=== PATIENT | female | born 1990 | race Caucasian/White ===

== ENCOUNTER 2017-05-14 15:59 | Emergency (ER) | payer MEDICAID ==
[~2017-05-14] VITALS: Ht 165.1 cm; Wt 77.1 kg
[2017-05-14 16:04] VITALS: BP_SYST 132
[2017-05-14] MEDS ORDERED: AMOXICILLIN/CLAVULANATE POTASSIUM 875 MG TABLET PO ONE (17:00)
[2017-05-14] MEDS ORDERED: IBUPROFEN 800 MG TABLET PO ONE (17:00)
[2017-05-14 17:15] VITALS: BP_SYST 124
== END 2017-05-14 17:15 | disposition home or self-care (01) ==
LOC: SED 15:59
DX: J02.9 Acute pharyngitis, unspecified (principal); R51 Headache
CPT/HCPCS: 99283

== ENCOUNTER 2019-07-24 18:49 | Emergency (ER) | payer MEDICAID ==
[~2019-07-24] VITALS: Ht 165.1 cm; Wt 79.4 kg
[2019-07-24 19:25] VITALS: BP_SYST 119
--- NOTE | 2019-07-24 19:35 | NUR ---
Patient to ER bed 3 to gown for evaluation. Side rails up.
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
--- NOTE | 2019-07-24 19:58 | NUR ---
denies n/v at this time
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
--- NOTE | 2019-07-24 20:20 | NUR ---
ER at bedside examining patient.
[2019-07-24 20:30] VITALS: BP_SYST 119
--- NOTE | 2019-07-24 20:30 | NUR ---
Patient given written and verbal discharge instructions and verbalizes understanding. ER MD discussed with patient the results and treatment provided. Patient in stable condition. ID arm band removed. Rx of motrin given. Patient educated on pain management and to follow up with PMD. Pain Scale 0/10. Opportunity for questions provided and answered. Medication side effect fact sheet provided.
== END 2019-07-24 20:30 | disposition home or self-care (01) ==
LOC: SED 18:49
DX: S49.91XA Unspecified injury of right shoulder and upper arm, initial encounter (principal); V49.40XA Driver injured in collision with unspecified motor vehicles in traffic accident, initial encounter; Y93.89 Activity, other specified; Y92.89 Other specified places as the place of occurrence of the external cause; Y99.8 Other external cause status
CPT/HCPCS: 73030; 81025; 99283

== ENCOUNTER 2023-08-01 12:56 | Emergency (ER) | payer MEDICAID ==
[~2023-08-01] VITALS: Ht 170.2 cm; Wt 90.7 kg
[2023-08-01 13:08] VITALS: BP_SYST 145; PULSE 70; RESP 20; TEMP 97; O2SAT 99
[2023-08-01] MEDS ORDERED: KETOROLAC TROMETHAMINE 60 MG/2 ML VIAL IM ONE (14:30)
[2023-08-01 15:38] LABS: BASOPHILS % (AUTO) 0.5 % (0.0-2.0); EOSINOPHILS # (AUTO) 0.1 K/uL (0.0-0.4); EOSINOPHILS % (AUTO) 1.3 % (0.0-4.0); HEMATOCRIT 37.3 % (36-48); HEMOGLOBIN 12.2 g/dL (12.0-16.0); LYMPHOCYTES # (AUTO) 2.8 K/uL (1.0-5.5); LYMPHOCYTES % (AUTO) 40.9 % (20.5-51.5); MEAN CORPUSCULAR HEMOGLOBIN 30 pg (27-31); MEAN CORPUSCULAR HGB CONC 33 % (32-36); MEAN CORPUSCULAR VOLUME 92 fL (79.0-98.0); MONOCYTES # (AUTO) 0.4 K/uL (0.0-1.0); MONOCYTES % (AUTO) 6.2 % (1.7-9.3); NEUTROPHILS # (AUTO) 3.5 K/uL (1.8-7.7); NEUTROPHILS % (AUTO) 51.1 % (40.0-70.0); PLATELET COUNT (AUTO) 357 K/uL (130-430); RED BLOOD CELL COUNT(AUTO) 4.04 MIL/uL (4.2-6.2); RED CELL DISTRIBUTION WIDTH 13.8 % (9.0-15.0); WHITE BLOOD COUNT (AUTO) 6.8 K/uL (4.8-10.8)
[2023-08-01 15:50] LABS: ANION GAP 7 (5-15); CALCIUM 8.5 mg/dL (8.4-11.0); CARBON DIOXIDE 28 mmol/L (23-29); CHLORIDE 104 mmol/L (98-107); CREATININE 0.69 mg/dL (0.55-1.30); GFR AFRICAN AMERICAN 127 mL/min (>90); GLUCOSE 91 mg/dL (74-106); POTASSIUM 4.1 mmol/L (3.5-5.1); SODIUM SERUM 139 mmol/L (136-145); UREA NITROGEN, BLOOD 13 mg/dL (8-21)
[2023-08-01 15:56] LABS: SERUM HCG (QUALITATIVE) NEGATIVE (NEGATIVE)
[2023-08-01 15:59] LABS: GFR NON AFRICAN-AMERICAN 105 mL/min (>90)
[2023-08-01 16:03] LABS: ALANINE AMINOTRANSFERASE 27 U/L (12-78); ALBUMIN 3.3 g/dL (3.4-4.8); ASPARTATE AMINOTRANSFERASE 18 U/L (10-37); FREE T4 (FREE THYROXINE) 0.9 ng/dL (0.6-1.6); TOTAL BILIRUBIN 0.3 mg/dL (0.0-1.0)
[2023-08-01] MEDS ORDERED: IBUP-1971 PO (16:36)
[2023-08-01 16:58] VITALS: BP_SYST 145; PULSE 70; RESP 20; TEMP 97; O2SAT 99
== END 2023-08-01 16:59 | disposition home or self-care (01) ==
LOC: SED 12:56
DX: R07.89 Other chest pain (principal); I44.0 Atrioventricular block, first degree; Z79.899 Other long term (current) drug therapy
CPT/HCPCS: 99285; 71045; 80053; 84703; 83880; 84439; 83735; 84443; 85025; 84484; 36415; 93005; 96372; J1885

== ENCOUNTER 2024-07-19 10:00 | Emergency (ER) | payer MEDICAID, OTHER ==
[~2024-07-19] VITALS: Ht 165.1 cm; Wt 90.7 kg
[~2024-07-19 10:00] MED LIST: IBUP-1971 PO
[2024-07-19 10:13] VITALS: BP_SYST 118; PULSE 84; RESP 16; TEMP 98.3; O2SAT 96
[2024-07-19] MEDS ORDERED: OLOP2.5D11 EACH EYE (10:49)
[2024-07-19] MEDS ORDERED: OFLO5DRO6 EACH EYE (10:49)
[2024-07-19 11:05] VITALS: BP_SYST 115; PULSE 80; RESP 16; TEMP 98.4; O2SAT 98
== END 2024-07-19 11:04 | disposition home or self-care (01) ==
LOC: SED 10:00
DX: H10.33 Unspecified acute conjunctivitis, bilateral (principal); Z79.899 Other long term (current) drug therapy
CPT/HCPCS: 99283